=== PATIENT | female | born 2005 | race Caucasian/White ===

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

== ENCOUNTER 2024-11-08 08:03 | Emergency (ER) | payer BC, SELFPAY ==
--- NOTE | ~2024-11-08 | CT_ITS ---
CT of the Abdomen and Pelvis: Indication: Abdominal pain, rectal bleeding Technique: 2.5 mm axial scans were obtained through the abdomen and pelvis following intravenous adm inistration of 100 cc of Omnipaque 350. Dose reduction technique was used on this scan by utilizing a utomated exposure control and iterative reconstruction technique. The dose-length product (DLP) was 9 41.97 mGy-cm. Findings: Scans through the lung bases are unremarkable. The liver, spleen, pancreas, gallbladder, adrenals and kidneys are within normal limits. No evidence of aortic aneurysm. No lymphadenopathy. There is wall thickening of the descending colon and proximal sigmoid colon. No bowel obstruction champ dent. No abscess or free air. Images through the pelvis were performed. Urinary bladder unremarkable. IUD in place. No adnexal mass evident. No ascites. Impression: Wall thickening of the descending and proximal sigmoid colon, compatible with infectious/inflammatory colitis. No obstruction, abscess, or free air. Reviewed, dictated and finalized at location . Impression: Wall thickening of the descending and proximal sigmoid colon, compatible with i nfectious/inflammatory colitis. No obstruction, abscess, or free air.
[2024-11-08 08:06] VITALS: BP 139/85; PULSE 107; RESP 18; TEMP 37; O2SAT 98
--- OUTSIDE RECORDS SUMMARY | 2024-11-08 08:11 | XMS_ITS | Clinical Summary ---
Author Organization [facility] Address [address] [place] [address] Care Team Providers Care Emery Grinder Name Role Phone Christopher Vivar MD Primary Care Provider [phone] Source Comments [facility] [employer],non-owned Affiliates and Associated Physician Practices is amultiple site organization consisting of ambulatory clinics and hospital sitesin [place], [place], [place] and [place]. This disclosure is being madepursuant to the Care Everywhere program and may not contain all information available regarding this patient. Last updated 18.[facility] [employer] Allergies Active Allergy Reactions Criticality Noted Date Comments Penicillins Rash Medium 04/12/2017 Medications Be aware that medications may not be up to date on this document. Always verify current medications with the patient. No known medications Family History Relation Name Status Comments Father Alive Mother Alive Social History Tobacco Use Types Packs/Day Years Used Date Smoking Tobacco: Never Smokeless Tobacco: Never Comments:non smoking home Sex and Gender Information Value Date Recorded Sex Assigned at Not on file Gender Identity Not on file Sexual Orientation Not on file Last Filed Vital Signs Vital Sign Reading Time Taken Comments Blood Pressure 100/64 03/07/2020 3:15 PM CDT Pulse 77 03/07/2020 3:15 PM CDT Temperature 36.6 C (97.8 F) 03/07/2020 3:15 PM CDT Respiratory Rate 16 03/07/2020 3:15 PM CDT Oxygen Saturation 99% 03/07/2020 3:15 PM CDT Inhaled Oxygen Concentration - - Weight 72.5 kg (159 lb 12.8 oz) 03/07/2020 3:15 PM CDT Height 166 cm (5' 5.35 ) 03/07/2020 3:15 PM CDT Body Mass Index 26.3 03/07/2020 3:15 PM CDT Plan of Treatment Health Maintenance Due Date Last Done Comments HIV SCREENING 2019 HPV VACCINE (1 - 3-dose series) 2019 CHLAMYDIA/GONORRHEA SCREENING 2020 MENINGOCOCCAL (Group B) VACC INE SHARED DECISION-MAKING (1 of 2 - Standard) 2020 HEPATITIS C SCREENING 08/23/2022 DTAP/TDAP/TD VACCINES (1 - Tdap) 2023 HEPATITIS B VACCINE (1 of 3 - 19+ 3-dose series) 2023 COVID-19 VACCINE (1 - 2023-2 5 season) 2024 INFLUENZA VACCINE (#1) 2024 DEPRESSION SCREENING 08/23/2024 ZOSTER VACCINE (1 of 2) 2054 HIB VACCINE Aged Out No longer eligi ble based on patient's age to complete this topic MENINGOCOCCAL GROUPS A/C/Y/W VACCINE Aged Out No longer eligible b ased on patient's age to complete this topic PNEUMOCOCCAL VACCINE Aged Out No long er eligible based on patient's age to complete this topic Care Teams Emery Grinder Relationship Specialty Start Date End Date Christopher Vivar MD [address] [place] [address] [place] [id number] PCP - General Internal Medicine 04/12/17
--- NOTE | 2024-11-08 08:20 | PC.NURSE ---
Dr. Cisneros notified pt is a mod risk on [place] Scale.
[2024-11-08 08:45] LABS: Basophils Absolute Auto 0.1 K/mm3 (0.0-0.1); Basophils Percent Auto 0.6 % (0.2-1.2); Eosinophils Absolute Auto 0.1 K/mm3 (0-0.3); Eosinophils Percent Auto 0.8 % (0-4.4); Hematocrit 42.4 % (37.0-47.0); Hemoglobin 13.7 g/dL (12.0-15.0); Immature Granulocyte Absolute 0.06 K/mm3 (0.00-0.031); Immature Granulocyte Percent A 0.5 % (0-0.5); Lymphocytes Absolute Auto 1.24 K/mm3 (0.9-3.2); Lymphocytes Percent Auto 10.3 % (18.3-44.2); Mean Corpuscular HGB Conc 32.3 g/dl (32-36); Mean Corpuscular Hemoglobin 25.6 pg (26-34); Mean Corpuscular Volume 79.3 fl (80-100); Mean Platelet Volume 9.8 fl (7.4-10.4); Monocytes Absolute Auto 0.7 K/mm3 (0.1-0.6); Monocytes Percent Auto 5.9 % (2.6-8.5); Neutrophils Absolute Auto 9.8 K/mm3 (1.3-6.7); Neutrophils Percent Auto 81.9 % (45.5-73.1); Platelet Count Result 332 k/mm3 (150-375); Red Blood Count 5.35 M/mm3 (4.2-5.4); Red Cell Distribution Width 14.6 % (11.5-14.5)
[2024-11-08 08:50] VITALS: BP 146/77; PULSE 98; RESP 16; O2SAT 97
[2024-11-08 08:55] LABS: BEDSIDEPREGUCG Negative (Negative)
[2024-11-08 09:08] LABS: Alanine Aminotransferase 26 U/L (6-35); Albumin Level 4.5 g/dL (3.5-5.1); Alkaline Phosphatase 65 U/L (38-126); Anion Gap 9 mmol/L (4-12); Aspartate Amino Transferase 24 U/L (14-36); Bilirubin,Total 0.5 mg/dL (0.2-1.3); Blood Urea Nitrogen 11 mg/dL (7-17); Calcium 9.8 mg/dL (8.4-10.2); Carbon Dioxide 27 mmol/L (22-30); Chloride 103 mmol/L (98-107); Estimated CRCL calculation 143 ml/min; Estimated Glomerular Filt Rate > 60; Glucose 119 mg/dL (65-110); Lipase 80 U/L (23-300); Potassium 3.9 mmol/L (3.4-5.0); Sodium 139 mmol/L (137-145)
[2024-11-08 09:08] LABS: Add Urine Microscopic? NO; Appearance Urine Clear (Clear); Bilirubin Urine Negative (Negative); Blood Urine Negative (Negative); Color Urine Yellow (Yellow); Glucose Urine UA Negative (Negative); Ketones Urine Negative (Negative); Leukocyte Esterase Ur Negative LEU/UL (Negative); Nitrate Urine Negative (Negative); Protein Urine Negative (Negative); Specific Grav Ur 1.019 (1.001-1.035); Urobilinogen Urine 0.2 mg/dL (<2.0); pH Urine 7.5 (5.0-9.0)
[2024-11-08 09:30] VITALS: BP 129/86; PULSE 85; RESP 18; O2SAT 99
--- OUTSIDE RECORDS SUMMARY | 2024-11-08 09:57 | XMS_ITS | Clinical Summary ---
Author Organization [facility] Address [address] [place] [address] Care Team Providers Care Director Of Convention Services Name Role Phone Christopher Vivar MD Primary Care Provider [phone] Source Comments [facility] [employer],non-owned Affiliates and Associated Physician Practices is amultiple site organization consisting of ambulatory clinics and hospital sitesin [place], [place], [place] and [place]. This disclosure is being madepursuant to the Care Everywhere program and may not contain all information available regarding this patient. Last updated 18.[facility] [employer] Allergies Active Allergy Reactions Criticality Noted Date [...] age to complete this topic Care Teams Director Of Convention Services Relationship Specialty Start Date End Date Christopher Vivar MD [address] [place] [address] [place] [id number] PCP - General Internal Medicine 04/12/17
--- OUTSIDE RECORDS SUMMARY | 2024-11-08 09:58 | XMS_ITS ---
Author Organization [facility] Address [address] [place] [address] Care Team Providers Care Foot Orthopedist Name Role Phone Unavailable Primary Care Physician Unavailab le Medications Name Start Date Expiration Date SIG Comments Kyleena 17.5 mcg/24 hr (up to 5 years) 19.5 mg intrauterine device 04/19/2024 04/20/2024 place 1 device by intrauterine route once Payers Insurance Name Company Name Plan Name Plan Number Policy Number Policy Group Number Start Date [place] [id number] N/A History of Encounters Visit Date Visit Type Provider 04/19/2024 My-IUD Tele-Med Consult Dr. Yordan Zuleta MD
--- NOTE | 2024-11-08 09:59 | ED_ITS ---
HPI - Abdominal Pain General Chief Complaint: Abdominal Pain Stated Complaint: rectal bleeding Time Seen by Provider: 11/08/24 09:01 Source: patient Mode of arrival: ambulatory Limitations: no limitations History of Present Illness HPI narrative: Patient is a 19-year-old female who presents the ED with report of rectal bleeding. Patient reports she was having abdominal pain this morning diffusely throughout her abdomen. Notes she was constipated for the last couple of days and was straining to pass a large hard bowel movement. Was able to eventually pass firm stool with some discomfort, but then began having some watery stool and bright red rectal bleeding. Then prompted here for further evaluation. Denies previous history of bleeding. Has had history of external hemorrhoids, but states this did not feel similar. Denies feeling a bulge in her rectal area. States abdominal pain is improved currently. Reports nausea, denies vomiting. Denies fevers. Denies difficulty urinating. Related Data Home Medications ?Medication ?Instructions ?Recorded ?Confirmed ?Last Taken ?Type drospirenone 3 mg-estetrol 14.2 mg See Rx Instructions PO .COMPLEX 05/03/24 05/03/24 Unknown History (28) tablet (Nextstellis) Allergies Allergy/AdvReac Type Severity Reaction Status Date / Time Penicillins Allergy Intermediate Rash Verified 11/08/24 08:14 Review of Systems 2 Review of Systems: All systems reviewed & are unremarkable except as noted in HPI. All systems reviewed & are unremarkable except as noted in HPI and below PMFSH Surgical History Surgical History History of ankle surgery (2019) Family History Family History Grandparent Brain cancer Social History Social History Social History: 04/26/2024 Patient is very confident filling out medical forms. Patient has not received assistance from help agency in the past 12 months. Smoking status: Never smoker Alcohol intake: never Substance use: never Substance use type: does not use Do You Feel Safe in your Home?: Yes Lack of Transportation: No Lack of Food: Never True Current Housing: I Have Housing Concerned About Future Housing: No Difficulty Paying Gas/Electric Bills: No Difficulty Paying for Meds: No Currently Unemployed: No Education: High School Diploma/GED Difficulty w/ Childcare or Family Care: No Living arrangements: with family Occupation/Education: student Additional occupation/education comments: [employer] Gender identity (if verbalized by the patient): Female Spiritual care concerns: No Agree to blood products: Yes Exam 2 Narrative: GENERAL: Well appearing, obese with BMI of 36.1, non-toxic, in no acute distress. HEAD: Normocephalic, atraumatic. RESPIRATORY: Airway patent, respirations nonlabored. Clear to auscultation bilaterally, no rales, rhonchi, wheezing. CARDIOVASCULAR: Regular rate and rhythm without murmurs, rubs, or gallops. ABDOMINAL: Soft, TTP in epigastric and suprapubic/LLQ regions, nondistended. Normoactive BS. MUSCULOSKELETAL: Moves all extremities. No gross deformities. SKIN: Warm, dry, normal color. NEURO: A&O X3. Speech clear. PSYCHIATRIC: Appropriate mood and affect. Normal interaction. Course Vital Signs Vital signs: Vital Signs Temperature 98.6 F 11/08/24 08:06 Pulse Rate 107 H 11/08/24 08:06 Respiratory Rate 18 11/08/24 08:06 Blood Pressure 139/85 11/08/24 08:06 Pulse Oximetry 98 11/08/24 08:06 Oxygen Delivery Room Air 11/08/24 08:06 Temperature 98.6 F 11/08/24 08:06 Pulse Rate 83 11/08/24 11:50 Respiratory Rate 14 11/08/24 11:50 Blood Pressure 127/74 11/08/24 11:50 Pulse Oximetry 99 11/08/24 11:50 Oxygen Delivery Room Air 11/08/24 08:06 MDM - Abdominal Pain MDM Narrative Medical decision making narrative: Patient presented to ED with abdominal pain, rectal bleeding. Vital signs are stable upon arrival. Patient is in no acute distress. States abdominal pain is improved currently. CBC with white blood cell count of 12. Hemoglobin is very much stable at 13.7. No evidence of hemodynamic instability. Urinalysis is clear. Urine negative. CT scan of abdomen/pelvis was obtained and showing evidence of inflammatory/infectious colitis. No obstruction, abscess, perforation. Consistent with clinical picture. Given new leukocytosis and bleeding, will start patient on antibiotics for colitis. Also discussed possibility of constipation, flare of internal hemorrhoids. Patient will be referred to GI for further evaluation as an outpatient. Feel she is otherwise safe for discharge home. Will also prescribe Bentyl, Zofran for home use. Given strict return precautions. She agrees with plan. Discharged in stable condition. Medical Records Attestation: I reviewed the patient's medical records. Lab Data Attestation: I reviewed the patient's lab results. 11/08/24 08:38 11/08/24 08:38 Labs: Lab Results 11/08/24 11/08/24 11/08/24 Range/Units 08:38 08:50 08:53 WBC 12.0 H (4.5-10.0) K/mm3 RBC 5.35 (4.2-5.4) M/mm3 Hgb 13.7 (12.0-15.0) g/dL Hct 42.4 (37.0-47.0) % MCV 79.3 L (80-100) fl MCH 25.6 L (26-34) pg MCHC 32.3 (32-36) g/dl RDW 14.6 H (11.5-14.5) % Plt Count 332 (150-375) k/mm3 MPV 9.8 (7.4-10.4) fl Immature Gran % (Auto) 0.5 (0-0.5) % Neut % (Auto) 81.9 H (45.5-73.1) % Lymph % (Auto) 10.3 L (18.3-44.2) % [place] % (Auto) 5.9 (2.6-8.5) % Eos % (Auto) 0.8 (0-4.4) % Baso % (Auto) 0.6 (0.2-1.2) % Lymph # (Auto) 1.24 (0.9-3.2) K/mm3 [place] # (Auto) 0.7 H (0.1-0.6) K/mm3 Eos # (Auto) 0.1 (0-0.3) K/mm3 Baso # (Auto) 0.1 (0.0-0.1) K/mm3 Abs Immat Gran (auto) 0.06 H (0.00-0.031) K/mm3 Absolute Neuts (auto) 9.8 H (1.3-6.7) K/mm3 Absolute Nucleated RBC 0.000 (0.0-0.012) K/mm3 Nucleated RBC % 0.0 (0.0-0.2) % Sodium 139 (137-145) mmol/L Potassium 3.9 (3.4-5.0) mmol/L Chloride 103 (98-107) mmol/L Carbon Dioxide 27 (22-30) mmol/L Anion Gap 9 (4-12) mmol/L BUN 11 (7-17) mg/dL Creatinine 0.62 L (0.7-1.0) mg/dL Estim Creat Clear Calc 143 ml/min Estimated GFR > 60 (59 - ) Glucose 119 H (65-110) mg/dL Calcium 9.8 (8.4-10.2) mg/dL Total Bilirubin 0.5 (0.2-1.3) mg/dL AST 24 (14-36) U/L ALT 26 (6-35) U/L Alkaline Phosphatase 65 (38-126) U/L Total Protein 8.0 (6.3-8.2) g/dL Albumin 4.5 (3.5-5.1) g/dL Lipase 80 (23-300) U/L Urine Color Yellow (Yellow) Urine Appearance Clear (Clear) Urine pH 7.5 (5.0-9.0) Ur Specific [place] 1.019 (1.001-1.035) Urine Protein Negative (Negative) mg/dL Urine Glucose (UA) Negative (Negative) mg/dL Urine Ketones Negative (Negative) mg/dL Ur Blood (Man) Negative (Negative) Urine Nitrate Negative (Negative) Urine Bilirubin Negative (Negative) Urine Urobilinogen 0.2 (<2.0) mg/dL Leukocyte Esterase Rfl Negative (Negative) SERAFIN/UL POC Urine HCG, Qual Negative (Negative) Imaging Data Attestation: I personally reviewed and interpreted this imaging study as follows: Radiologist's impression: ITS Impressions Abdomen/Pelvis CT 11/08/24 10:47 Impression: Wall thickening of the descending and proximal sigmoid colon, compatible with infectious/inflammatory colitis. No obstruction, abscess, or free air. Discharge Plan Discharge Clinical Impression: Colitis, BRBPR (bright red blood per rectum) Constipation Qualifiers: Constipation type: unspecified constipation type Qualified Code(s): K59.00 - Constipation, unspecified Patient Disposition: Home, Self-Care Condition: Stable Instructions: Antibiotic Form, Constipation (ED), Hemorrhoids (ED), Rectal Bleeding (ED), High Fiber Diet (ED), Colitis (ED) Additional Instructions: Take both antibiotics as prescribed for colitis. Avoid alcohol use while on Flagyl. Stay well hydrated. Continue Tylenol, Bentyl as needed for pain. Utilize Zofran as needed for nausea. Recommend clear liquids or bland diet until symptoms improve, such as bananas, rice, applesauce, toast, or crackers. Follow-up with GI and primary care doctor for further evaluation. Return to ED if you experience worsening or severe bleeding, severe pain, unable to keep down food or drink, persistent fevers, or any other symptoms of concern. Patient Language: Pakistani Prescriptions: New metronidazole 500 mg tablet 500 mg PO Q8H 7 Days Qty: 21 0RF ciprofloxacin HCl 500 mg tablet 500 mg PO Q12H 7 Days Qty: 14 0RF dicyclomine 20 mg tablet 20 mg PO TID PRN (Reason: Abdominal Discomfort) Qty: 15 0RF ondansetron 4 mg tablet,disintegrating 4 mg PO Q8H PRN (Reason: nausea and vomiting) Qty: 15 0RF No Action Nextstellis 3 mg- 14.2 mg (28) tablet See Rx Instructions PO .COMPLEX Rx Instructions: take 1-PINK tablet once daily for 24 days/days 1-24 of cycle; take 1-WHITE tablet once daily for 4 days/days 25-28 of cycle. PO phentermine 37.5 mg capsule 37.5 mg PO DAILY Qty: 30 1RF Rx Instructions: must administer 30 minutes before or 1-2 hours after breakfast Follow-up/Referrals: Lisa Morrell APN-C [Primary Care Provider] - Luigi Merino MD [Physician] - (GI) Time of Disposition: 11:31
[2024-11-08] MEDS: DICYCLOMINE HCL 10 MG CAPSULE 20 MG PO (11:49)
[2024-11-08] MEDS: ACETAMINOPHEN 500 MG TABLET 1000 MG PO (11:49)
[2024-11-08 11:50] VITALS: BP 127/74; PULSE 83; RESP 14; O2SAT 99
== END 2024-11-08 11:58 | disposition home or self-care (01) ==
PROVIDERS: Student in an Organized Health Care Education/Training Program; Emergency Provider Physician Assistant; PCP Nurse Practitioner Family
DX: K52.9 Noninfective gastroenteritis and colitis, unspecified (principal); K59.00 Constipation, unspecified; K62.5 Hemorrhage of anus and rectum
CPT/HCPCS: 36415; 74177; 80053; 81003; 81025; 83690; 85025; 99284; A9270; Q9967